=== PATIENT | female | born 1990 | race American Indian/Alaskan Native ===

== ENCOUNTER 2022-05-26 12:41 | Emergency (ER) | payer MEDICAID ==
[2022-05-26 13:00] VITALS: BP 137/77
--- NOTE | 2022-05-26 13:02 | Emergency Department Report ---
ED General Adult HPI - General Chief complaint: Arrhythmia/Palpitations Stated complaint: 4 MONTHS PREG/CP/VOMITING PUI?: No Time Seen by Provider: 05/26/22 13:00 Source: patient Mode of arrival: Ambulatory Limitations: No Limitations - History of Present Illness Initial comments: 31 YO WHO COMES TO ER WITH CP AND PALPITATION. NO HX OF SAME. NO FEVER OR CHILLS. PT IS . [id number] NO HX HTN OR PROBLEMS WITH OTHER PREG. CP IS SUBSTERNAL/FLUTTERING. ALSO N/V. NON BLOODY VOMITUS - Related Data Allergies Allergy/AdvReac Type Severity Reaction Status Date / Time No Known Allergies Allergy Verified 05/26/22 13:00 ED Review of Systems ROS: Stated complaint: 4 MONTHS PREG/CP/VOMITING Other details as noted in HPI Comment: All other systems reviewed and negative ED Past Medical Hx - Past Medical History Previous Medical History?: No - Surgical History Past Surgical History?: Yes - Family History Family history: no significant - Social History Smoking Status: Former Smoker Substance Use Type: None ED Physical Exam - General Limitations: No Limitations General appearance: alert, in no apparent distress - Head Head exam: Present: atraumatic, normocephalic - Eye Eye exam: Present: normal appearance - ENT ENT exam: Present: mucous membranes moist - Neck Neck exam: Present: normal inspection - Respiratory Respiratory exam: Present: normal lung sounds bilaterally. Absent: respiratory distress - Cardiovascular Cardiovascular Exam: Present: regular rate, normal rhythm. Absent: systolic murmur, diastolic murmur, rubs, gallop - GI/Abdominal GI/Abdominal exam: Present: soft, normal bowel sounds - Extremities Exam Extremities exam: Present: normal inspection - Back Exam Back exam: Present: normal inspection - Neurological Exam Neurological exam: Present: alert, oriented X3 - Psychiatric Psychiatric exam: Present: normal affect, normal mood - Skin Skin exam: Present: warm, dry, intact, normal color. Absent: rash ED Course Vital Signs 05/26/22 12:55 Temperature 97.9 F Pulse Rate 104 H Respiratory 18 Rate Blood Pressure 137/77 O2 Sat by Pulse 98 Oximetry ED Medical Decision Making - Medical Decision Making MSE COMPLETED LABS ORDERED ER FOR EVAL Critical care attestation.: If time is entered above; I have spent that time in minutes in the direct care of this critically ill patient, excluding procedure time. ED Disposition Clinical Impression: Chest pain Disposition: 30 STILL A PATIENT Is pt being admited?: No Does the pt Need Aspirin: No Condition: Stable Instructions: Nonspecific Chest Pain, Adult
[2022-05-26 13:51] LABS: Hematocrit 36.8 % (30.3-42.9); Hemoglobin 12.6 gm/dl (10.1-14.3); Mean Corpuscular HGB Conc 34 % (30-34); Mean Corpuscular Volume 82 fl (79-97); Platelet Count 163 K/mm3 (140-440); Red Blood Count 4.47 M/mm3 (3.65-5.03); Red Cell Distribution Width 14.9 % (13.2-15.2)
[2022-05-26 14:26] LABS: Alanine Aminotransferase 8 units/L (7-56); Albumin 3.7 g/dL (3.9-5); BUN/Creatinine Ratio 10; Blood Urea Nitrogen 8 mg/dL (7-17); Calcium 9.4 mg/dL (8.4-10.2); Hemolysis Index 0
--- NOTE | 2022-05-28 18:16 | Electrocardiograph Report ---
[facility] Test Date: 2022-05-26 Test Time: 13:03:37 Pat Name: ELIZABETH GARCIA Department: Room: Gender: F [employer]chid [employer]er: BLAINE : 1990 Requested By: RAQUEL GRAHAM Order Number: [id number] Reading MD: Nidia Palomares Measurements Intervals [place] Rate: 101 P: 82 OK: 183 QRS: 52 QRSD: 87 T: 62 QT: 345 QTc: 447 Interpretive Statements Sinus tachycardia Probable left atrial enlargement No previous ECG available for comparison Electronically Signed On 05-28-2022 18:15:22 EDT by Nidia Palomares
== END 2022-05-27 07:53 | disposition left against medical advice (07) ==
LOC: ED 12:41
DX: O26.892 Other specified pregnancy related conditions, second trimester (principal); R07.89 Other chest pain; Z3A.16 16 weeks gestation of pregnancy; Z53.21 Procedure and treatment not carried out due to patient leaving prior to being seen by health care provider
CPT/HCPCS: 36415; 80053; 82962; 84484; 85027; 93005; 99283